=== PATIENT | female | born 1965 | race Caucasian/White ===

== ENCOUNTER 2019-08-11 10:51 | Emergency (ER) | payer OTHER ==
[~2019-08-11] VITALS: Ht 160 cm; Wt 99.8 kg
[2019-08-11] MEDS ORDERED: ACID REDUCER200 MG PO (11:08)
[2019-08-11] MEDS ORDERED: IBUPROFEN 600600 M1 PO (11:59)
[2019-08-11] MEDS ORDERED: NORCO 5-325 TA1 EAC1 PO (11:59)
[2019-08-11 12:38] VITALS: BP 121/75
== END 2019-08-11 12:39 | disposition home or self-care (01) ==
LOC: M.ERS 10:51
DX: S62.121A Displaced fracture of lunate [semilunar], right wrist, initial encounter for closed fracture (principal); M25.511 Pain in right shoulder; K21.9 Gastro-esophageal reflux disease without esophagitis; Z88.8 Allergy status to other drugs, medicaments and biological substances; Z88.2 Allergy status to sulfonamides; W18.39XA Other fall on same level, initial encounter; Y93.89 Activity, other specified; Y92.481 Parking lot as the place of occurrence of the external cause; Y99.8 Other external cause status